=== PATIENT | female | born 1970 | race Caucasian/White ===

== ENCOUNTER 2017-04-26 10:53 | Emergency (ER) | payer OTHER ==
[~2017-04-26] VITALS: Ht 175.3 cm; Wt 86.2 kg
[~2017-04-26 10:53] MED LIST: ALBUTEROL INHAL17 GM; CLONAZEPAM PO; DULERA 200 MCG/13 GM; ESTRACE0.5 MG PO; LEVOTHYROXIN0.025 MG PO; MEDROLDOSEPACK PO; PERCOCET 5-3251 EACH PO; VYVANSE20 MG; XANAX 0.25 MG0.25 MG PO
[2017-04-26 11:34] LABS: URINE BILIRUBIN NEGATIVE (Negative); URINE BLOOD NEGATIVE (Negative); URINE CLARITY CLEAR; URINE COLOR YELLOW; URINE GLUCOSE-RANDOM NEGATIVE (Negative); URINE KETONES NEGATIVE (Negative); URINE LEUKOCYTES-REFLEX TRACE (Negative); URINE NITRITE-REFLEX NEGATIVE (Negative); URINE PROTEIN NEGATIVE (Negative); URINE SPECIFIC GRAVITY <= 1.005 (1.005-1.030); URINE UROBILINOGEN 0.2 E.U./dl (0.2-1.0)
[2017-04-26 11:39] LABS: ABSOLUTE BASOPHILS 0.1 thou/uL (0.0-0.2); ABSOLUTE EOSINOPHILS 0.1 thou/uL (0.0-0.7); ABSOLUTE LYMPHOCYTES 1.7 thou/uL (0.8-5.3); ABSOLUTE MONOCYTES 0.7 thou/uL (0.0-1.2); ABSOLUTE NEUTROPHILS 6.8 thou/uL (1.6-8.1); EOSINOPHILS 0.8 %; HEMATOCRIT 44.4 % (37.0-47.0); HEMOGLOBIN 15.3 gm/dL (12.0-15.0); LYMPHOCYTES 18.1 %; MCH 29.2 pg (26.0-34.0); MCHC 34.5 g/dL (28.0-37.0); MCV 84.4 fL (80.0-100.0); MONOCYTES 7.6 %; MPV 7.9 fl. (7.2-11.1); NUCLEATED RBCS 0 /100WBC; PLATELET COUNT* 263 thou/uL (150-400); POLYS 72.5 %; RBC 5.26 mil/uL (4.20-5.00); RDW-CV 13.4 % (10.5-14.5); WBC 9.4 thou/uL (4.0-11.0)
[2017-04-26 11:40] LABS: BACTERIA-REFLEX None Seen /HPF (None Seen); CASTS None Seen /LPF (None Seen); CRYSTALS None Seen /LPF (None Seen); SQUAMOUS 0-3 Few /LPF (0-3); URINE RBC None Seen /HPF (0-2); URINE WBC-REFLEX 0-5 Rare /HPF (0-5)
[2017-04-26 11:47] LABS: ANION GAP 9 mmol/L (7-16); BUN 15 mg/dL (7-18); CALCIUM 9.4 mg/dL (8.5-10.1); CHLORIDE 101 mmol/L (98-107); CO2 31 mmol/L (21-32); CREATININE 0.8 mg/dL (0.6-1.3); GLUCOSE 106 mg/dL (70-99); POTASSIUM 3.9 mmol/L (3.5-5.1); SODIUM 141 mmol/L (136-145)
[2017-04-26 11:55] LABS: ALBUMIN 4.2 g/dL (3.4-5.0); ALKALINE PHOSPHATASE 92 U/L (46-116); SGOT 14 U/L (15-37); SGPT 25 U/L (30-65); TOTAL BILIRUBIN 0.6 mg/dL (<0.1-1.0); TOTAL PROTEIN 8.2 g/dL (6.4-8.2); TROPONIN-I LEVEL <0.06 ng/mL (<0.06)
[2017-04-26] MEDS ORDERED: PROTONIX40 M1 PO (14:57)
[2017-04-26 15:06] VITALS: BP 121/82
--- NOTE | 2017-04-26 17:21 | EKG ---
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 : 1970 Requested By: Manuel Tyler Order Number: [id number] MD: Goyo Rivera Measurements Intervals [place] Rate: 111 P: 41 AR: 161 QRS: 17 QRSD: 86 T: -14 QT: 298 QTc: 405 Interpretive Statements Sinus tachycardia Borderline T abnormalities, diffuse leads Compared to ECG 06/24/2016 08:40:14 Sinus rhythm no longer present Electronically Signed On 04-26-2017 17:21:03 TRIAL MANAGEMENT ASSOCIATE by Goyo Rivera [email or web address] <ELECTRONICALLY SIGNED> By: Goyo Rivera MD, [facility] 04/26/17 172 57 57 Goyo Rivera MD, [facility] /EPI
== END 2017-04-26 15:07 | disposition home or self-care (01) ==
LOC: M.ERS 10:53
PROVIDERS: Physician Assistant
DX: R10.13 Epigastric pain (principal); R00.2 Palpitations; J45.909 Unspecified asthma, uncomplicated; M79.7 Fibromyalgia; Z88.5 Allergy status to narcotic agent; Z88.0 Allergy status to penicillin; Z88.2 Allergy status to sulfonamides

== ENCOUNTER 2020-02-03 12:31 | Emergency (ER) | payer OTHER ==
[~2020-02-03] VITALS: Ht 175.3 cm; Wt 90.7 kg
[~2020-02-03 12:31] MED LIST changes: +PROTONIX40 M1 PO
[2020-02-03 13:12] LABS: ABSOLUTE BASOPHILS 0.1 thou/uL (0.0-0.2); ABSOLUTE EOSINOPHILS 0.1 thou/uL (0.0-0.7); ABSOLUTE LYMPHOCYTES 2.3 thou/uL (0.8-5.3); ABSOLUTE MONOCYTES 0.4 thou/uL (0.0-1.2); ABSOLUTE NEUTROPHILS 3.3 thou/uL (1.6-8.1); BASOPHILS 1.1 %; HEMATOCRIT 43.4 % (37.0-47.0); HEMOGLOBIN 14.5 gm/dL (12.0-15.0); LYMPHOCYTES 37.4 %; MCH 28.4 pg (26.0-34.0); MCHC 33.5 g/dL (28.0-37.0); MCV 84.8 fL (80.0-100.0); MONOCYTES 6.6 %; MPV 7.5 fl. (7.2-11.1); NUCLEATED RBCS 0 /100WBC; PLATELET COUNT* 271 thou/uL (150-400); POLYS 53.9 %; RBC 5.12 mil/uL (4.20-5.00); RDW-CV 13.3 % (10.5-14.5); WBC 6.2 thou/uL (4.0-11.0)
[2020-02-03 13:26] LABS: ANION GAP 6 mmol/L (7-16); BUN 13 mg/dL (7-18); CHLORIDE 104 mmol/L (98-107); CO2 31 mmol/L (21-32); CREATININE 0.8 mg/dL (0.6-1.3); GLUCOSE 125 mg/dL (70-99); POTASSIUM 3.8 mmol/L (3.5-5.1); SODIUM 141 mmol/L (136-145)
[2020-02-03 13:29] LABS: APTT 25.5 Seconds (25.0-31.3); PROTIME 10.4 Seconds (9.20-11.50)
[2020-02-03 13:39] LABS: ALBUMIN 3.5 g/dL (3.4-5.0); ALKALINE PHOSPHATASE 99 U/L (46-116); CK-MB MASS < 0.5 ng/mL (<0.5-3.6); LIPASE 118 U/L (73-393); MAGNESIUM 2.2 mg/dL (1.8-2.4); NT-PRO BRAIN NAT PEPTIDE 41 pg/mL (<300); SGOT 16 U/L (15-37); SGPT 28 U/L (30-65); TOTAL BILIRUBIN 0.4 mg/dL (<0.1-1.0); TOTAL PROTEIN 7.7 g/dL (6.4-8.2)
[2020-02-03 13:57] VITALS: BP 144/85
--- NOTE | 2020-02-05 08:56 | EKG ---
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 [employer]: : 1970 Requested By: Rei Cruz Order Number: [id number] MD: Goyo Rivera Measurements Intervals [place] Rate: 96 P: 47 MA: 140 QRS: 29 QRSD: 100 T: 34 QT: 333 QTc: 421 Interpretive Statements Sinus rhythm Multiple ventricular premature complexes Compared to ECG 04/26/2017 10:58:00 Ventricular premature complex(es) now present Sinus tachycardia no longer present T-wave abnormality no longer present Electronically Signed On 02-05-2020 8:55:58 LOSS MITIGATION SPECIALIST by Goyo Rivera [email or web address] <ELECTRONICALLY SIGNED> By: Goyo Rivera MD, FAC 02/05/20 0855 1237 1237 Goyo Rivera MD, [facility] /EPI
== END 2020-02-03 13:57 | disposition home or self-care (01) ==
LOC: M.ERS 12:31
PROVIDERS: Family Medicine
DX: R07.89 Other chest pain (principal); J44.9 Chronic obstructive pulmonary disease, unspecified; M79.7 Fibromyalgia; Z88.5 Allergy status to narcotic agent; Z88.0 Allergy status to penicillin; Z88.2 Allergy status to sulfonamides

== ENCOUNTER 2020-06-09 13:24 | Emergency (ER) | payer OTHER ==
[~2020-06-09] VITALS: Ht 177.8 cm; Wt 95.3 kg
[2020-06-09] MEDS ORDERED: SYMBICORT80 MCG/4.1 INH (13:35)
[2020-06-09] MEDS ORDERED: NAPROSYN500 MG PO (14:20)
[2020-06-09] MEDS ORDERED: MEDROLDOSEPACK PO (14:20)
[2020-06-09 14:29] VITALS: BP 126/84
== END 2020-06-09 14:30 | disposition home or self-care (01) ==
LOC: M.ERS 13:24
DX: J06.9 Acute upper respiratory infection, unspecified (principal); Z20.822 Contact with and (suspected) exposure to COVID-19; J44.9 Chronic obstructive pulmonary disease, unspecified; M79.7 Fibromyalgia; Z88.5 Allergy status to narcotic agent; Z88.0 Allergy status to penicillin; Z88.2 Allergy status to sulfonamides